=== PATIENT | male | born 2000 | race Caucasian/White ===

== ENCOUNTER 2020-07-01 22:02 | Emergency (ER) | payer MEDICAID ==
[~2020-07-01] VITALS: Ht 170.2 cm; Wt 153.0 kg
[2020-07-01 22:11] VITALS: BP 136/82
[2020-07-01] MEDS ORDERED: IBUP-1984 PO (22:47)
== END 2020-07-01 23:05 | disposition home or self-care (01) ==
LOC: ER 22:04
DX: M79.641 Pain in right hand (principal); Z88.1 Allergy status to other antibiotic agents; Z79.899 Other long term (current) drug therapy
CPT/HCPCS: 29125; 73130; 99283

== ENCOUNTER 2020-12-13 11:47 | Emergency (ER) | payer MEDICAID ==
[~2020-12-13] VITALS: Ht 170.2 cm; Wt 158.0 kg
[2020-12-13 12:23] VITALS: BP 151/88
[2020-12-13] MEDS ORDERED: CEPH250T PO (12:35)
[2020-12-13] MEDS ORDERED: DIPH-423 PO (12:35)
== END 2020-12-13 13:41 | disposition home or self-care (01) ==
LOC: ER 11:48
DX: T78.40XA Allergy, unspecified, initial encounter (principal); Z88.0 Allergy status to penicillin; X58.XXXA Exposure to other specified factors, initial encounter
CPT/HCPCS: 99283

== ENCOUNTER 2021-03-15 18:19 | Emergency (ER) | payer MEDICAID ==
[~2021-03-15] VITALS: Ht 170.2 cm; Wt 154.0 kg
[~2021-03-15 18:19] MED LIST: DIPH-423 PO
[2021-03-15 18:44] VITALS: BP 149/91
[2021-03-15] MEDS ORDERED: PRED20TA PO (19:10)
[2021-03-15] MEDS ORDERED: ALBU6.7H9 INH (19:10)
[2021-03-15] MEDS ORDERED: ONDA4TAB6 PO (19:10)
--- NOTE | 2021-03-15 19:41 | NUR ---
pt dc'd home
== END 2021-03-16 | disposition home or self-care (01) ==
LOC: ER 03-16 04:51
DX: J02.9 Acute pharyngitis, unspecified (principal); Z20.822 Contact with and (suspected) exposure to COVID-19; R19.7 Diarrhea, unspecified; R51.9 Headache, unspecified; R11.10 Vomiting, unspecified; Z88.1 Allergy status to other antibiotic agents; Z79.899 Other long term (current) drug therapy
CPT/HCPCS: 36415; 99283; U0003; U0005

== ENCOUNTER 2021-04-08 20:35 | Emergency (ER) | payer MEDICAID ==
[~2021-04-08] VITALS: Ht 170.2 cm; Wt 154.0 kg
[~2021-04-08 20:35] MED LIST changes: +ALBU6.7H9 INH; +ONDA4TAB6 PO
[2021-04-08 20:36] VITALS: BP 113/70
--- NOTE | 2021-04-08 21:11 | NUR ---
pt seen and dc'd by provider
== END 2021-04-08 21:13 | disposition home or self-care (01) ==
LOC: ER 20:35
DX: S90.32XD Contusion of left foot, subsequent encounter (principal); M79.672 Pain in left foot; Z88.1 Allergy status to other antibiotic agents; Z79.899 Other long term (current) drug therapy; X58.XXXD Exposure to other specified factors, subsequent encounter
CPT/HCPCS: 99281

== ENCOUNTER 2021-09-19 00:01 | Emergency (ER) | payer MEDICAID ==
[~2021-09-19] VITALS: Ht 157.5 cm; Wt 150.0 kg
[2021-09-19 00:14] VITALS: BP 147/85
== END 2021-09-19 03:13 | disposition left against medical advice (07) ==
LOC: ER 00:02
DX: M79.642 Pain in left hand (principal); M79.641 Pain in right hand; Z53.21 Procedure and treatment not carried out due to patient leaving prior to being seen by health care provider

== ENCOUNTER 2023-09-14 19:00 | Emergency (ER) | payer MEDICAID ==
[~2023-09-14] VITALS: Ht 170.2 cm; Wt 173.1 kg
[~2023-09-14 19:00] MED LIST changes: +ALBU6.7H14 INH; -ALBU6.7H9 INH
[2023-09-14 19:05] VITALS: BP 133/76; PULSE 88; O2SAT 97
[2023-09-14] MEDS ORDERED: ALBU8HFA PO (20:07)
[2023-09-14] MEDS: dexamethasone sod phosphate 10mg/ml inj PO STA (20:10)
[2023-09-14 20:13] VITALS: RESP 18; TEMP 98
== END 2023-09-14 20:14 | disposition home or self-care (01) ==
LOC: ER 19:01
DX: J20.9 Acute bronchitis, unspecified (principal); Z88.1 Allergy status to other antibiotic agents; Z79.899 Other long term (current) drug therapy
CPT/HCPCS: 99283; J1100